=== PATIENT | male | born 1955 | race Caucasian/White ===

== ENCOUNTER 2018-11-06 17:08 | Emergency (ER) | payer OTHER ==
--- NOTE | 2018-11-06 18:22 | RAD ---
LEFT INDEX FINGER THREE VIEWS: INDICATIONS: Infected blister on the left index finger. COMPARISON: None. FINDINGS: There is scattered osteoarthrosis of the IP joints of the left index finger. There is soft tissue sw elling of the left index finger. No destructive osteolysis is evident. IMPRESSION: Soft tissue swelling of the left index finger. No destructive osteolysis to suggest radiographic sage dence of osteomyelitis. 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 POS: BH
== END 2018-11-06 18:40 | disposition home or self-care (01) ==
LOC: ERS 17:08
DX: L03.012 Cellulitis of left finger (principal); I10 Essential (primary) hypertension; E78.00 Pure hypercholesterolemia, unspecified

== ENCOUNTER 2018-11-08 22:04 | Emergency (ER) | payer OTHER ==
[2018-11-08] MEDS ORDERED: Naproxen 500 MG TAB ONE (23:04)
== END 2018-11-08 23:10 | disposition home or self-care (01) ==
LOC: ERS 22:04
DX: L03.012 Cellulitis of left finger (principal); I10 Essential (primary) hypertension; E78.00 Pure hypercholesterolemia, unspecified; Z79.899 Other long term (current) drug therapy
CPT/HCPCS: 99283

== ENCOUNTER 2018-11-09 23:38 | Emergency (ER) | payer OTHER ==
[2018-11-09] MEDS ORDERED: Promethazine HCl 25 MG/ML VIAL ONE (23:58)
[2018-11-10 00:06] LABS: #Basophils 0.1 thou/uL (0.0-0.2); #Eosinphils 0.2 thou/uL (0.0-0.7); #Lymphocytes 1.5 thou/uL (1.20-3.40); #Monocytes 0.5 thou/uL (0.11-0.59); #Neutrophils 7.8 thou/uL (1.40-6.50); %Basophils 0.9 % (0.0-1.0); %Eosinophils 1.7 % (0.0-10.0); %Monocytes 4.9 % (0.0-10.0); %Neutrophils 77.5 % (42.0-75.0); Hemoglobin 16.2 g/dL (14.0-18.0); Mean Corpuscular HGB CONC 33.1 g/dL (32.0-36.0); Mean Corpuscular Hemoglobin 29.7 pg (27.0-31.0); Mean Corpuscular Volume 89.7 fL (78.0-98.0); Platelet Count 237 thou/uL (130-400); RBC Distribution Width 12.2 % (11.5-14.5); Red Blood Cell (RBC) Count 5.45 mill/uL (4.70-6.10); White Blood Cell (WBC) Count 10.1 thou/uL (4.8-10.8)
[2018-11-10 00:29] LABS: ALT (SGPT) 26 U/L (8-55); AST (SGOT) 28 U/L (5-34); Albumin 4.4 g/dL (3.4-4.8); Alcohol Less than 10 mg/dL (Less than 10); Alkaline Phosphatase 54 U/L (40-150); Anion Gap 18 mmol/L (10-20); BUN (Urea Nitrogen) 19 mg/dL (8.4-25.7); Bilirubin, Total 0.6 mg/dL (0.2-1.2); Calc. Creatinine Clearance 0 mL/min (70-130); Calcium 9.4 mg/dL (7.8-10.44); Carbon Dioxide 22 mmol/L (23-31); Chloride 99 mmol/L (98-107); Estimated GFR-MDRD 68; Globulin 3.2 g/dL (2.4-3.5); Glucose 123 mg/dL (80-115); Potassium 3.6 mmol/L (3.5-5.1); Protein, Total 7.6 g/dL (5.8-8.1); Sodium 135 mmol/L (136-145)
--- NOTE | 2018-11-12 14:08 | EKG ---
Test Reason : Blood Pressure : / mmHG Vent. Rate : 051 BPM Atrial Rate : 051 BPM P-R Int : 184 ms QRS Dur : 090 ms QT Int : 482 ms P-R-T Axes : 021 065 068 degrees QTc Int : 444 ms Sinus bradycardia Otherwise normal ECG Confirmed by NICOLAS INFANTE ([id number]), test preparation tutor TYRA GARCIA ([id number]) on 11/12/2018 2:07:43 PM Referred By: Confirmed By:NICOLAS INFANTE
== END 2018-11-10 00:56 | disposition home or self-care (01) ==
LOC: ERS 23:38
DX: R11.2 Nausea with vomiting, unspecified (principal); I10 Essential (primary) hypertension; E78.00 Pure hypercholesterolemia, unspecified
CPT/HCPCS: 36415; 80053; 80307; 84484; 85025; 93005; 96360; 96372; J2550